=== PATIENT | male | born 1955 | race Caucasian/White ===

== ENCOUNTER 2017-08-11 12:42 | Emergency (ER) | payer OTHER ==
--- NOTE | 2017-08-11 12:51 | CPEKG ---
Heart Rate: 62 RR Interval: 968 P-R Interval: 200 QRSD Interval: 104 QT Interval: 432 QTC Interval: 439 P [place]: 24 QRS [place]: -10 T Wave [place]: 16 EKG Severity - NORMAL ECG - EKG Impression: SINUS RHYTHM Electronically Signed By: Heather Dyson 11-Aug-2017 15:14:11
[2017-08-11 12:53] VITALS: TEMP 97.7
--- NOTE | 2017-08-11 13:00 | EDPHY ---
H & P Time Seen by Provider: 08/11/17 12:48 HPI/ROS: CHIEF COMPLAINT: Dizziness HISTORY OF PRESENT ILLNESS: The patient is a 62-year-old male who presents emergency department with sudden onset of dizziness. The patient states that this morning he had some mild hearing loss in his left ear. He denies tenderness. While at lunch he developed sudden-onset dizziness. He felt as though room were spinning. He felt "off." Patient states that he became diaphoretic. He had nausea with 1 episode of vomiting. The patient denies any focal weakness or numbness. No visual change. No neck pain. No recent trauma or fall. He has no headache. REVIEW OF SYSTEMS: My complete review of systems is negative except as mentioned in the HPI. Past Medical/Surgical History: Denies Past surgical history: Noncontributory Smoking Status: Never smoked Physical Exam: Vitals noted GENERAL: Mild acute distress, alert. HEENT: Eyes normal to inspection, normal pharynx, no signs of dehydration. Horizontal nystagmus. His TMs are negative bilaterally. NECK: No thyromegaly, no lymphadenopathy, supple. The no bruit. RESPIRATORY: Clear to auscultation bilaterally, no rales, rhonchi or wheezing. CVS: Regular rate and rhythm, no rubs, murmurs, or gallops. ABDOMEN: Soft, nontender, nondistended, no organomegaly. BACK: Normal to inspection, no CVA tenderness. SKIN: Normal color, no rash, warm, dry. No pallor. EXTREMITIES: No pedal edema, no calf tenderness, no Homans sign or cords, no joint swelling. NEURO/PSYCH: Higher functions: Alert and Oriented x3. Normal speech and cognition. Normal mood and affect. Cranial nerves: Normal as tested. Cerebellar: Normal as tested. Good finger to nose, good [id number]. The patient has good rapid alternating movement without difficulty. Peripheral exam: Normal motor exam. Normal sensation. Normal reflexes. Constitutional: Initial Vital Signs Temperature (C) 36.5 C 08/11/17 12:48 Heart Rate 63 08/11/17 12:48 Respiratory Rate 16 08/11/17 12:48 Blood Pressure 148/72 H 08/11/17 12:48 O2 Sat (%) 93 08/11/17 12:48 O2 Delivery Mode Nasal Cannula O2 (L/minute) 2 Allergies/Adverse Reactions: No Known Allergies Allergy (Unverified 08/11/17 12:52) Home Medications: Medication Instructions Recorded Lisinopril 08/11/17 Meclizine HCl [Meclizine HCl 25 mg 25 mg PO TID #11 tab 08/11/17 (RX,OTC)] Ondansetron Odt [Zofran Odt 4 mg 4 mg PO Q4PRN PRN #7 tab 08/11/17 (*)] Medical Decision Making - Diagnostics Imaging Results: Imaging Impressions Head CT 08/11/17 13:02 Impression: 1. Normal CT brain without contrast. 2. Consider MRI of the brain without and with contrast enhancement, if there is continued clinical concern. Findings and recommendations discussed with Emergency Department physician, LISSETH BRADY at 13:30 hour, 08/11/2017. Final report concurs with initial preliminary interpretation. ED Course/Re-evaluation: In the emergency department I discussed possible etiologies with the patient. I answered all his questions. Patient was given meclizine 25 mg orally. He was given Ativan 1 mg IV. Patient was given normal saline 1 L IV for hydration. Head CT was ordered. An EKG was ordered. EKG shows normal sinus rhythm, normal rate, normal axis, normal intervals. There are no ST or T-wave abnormalities. EKG is normal as interpreted by me. 1329: head CT: No acute disease noted. Please refer the dictated report by Dr. Amin. On recheck the patient was still feeling significantly dizzy. Patient is white count was mildly elevated 10. Hematocrit was normal. Chemistry panel was notable for a low CO2 of 18. Anion gap was 17. His troponin was negative. 14 50: I rechecked the patient. He is feeling much better. He sits up and can ambulate without difficulty. He has no dizziness. His nystagmus is gone. No focal neurologic deficits. Differential Diagnosis: My differential includes but is not limited to peripheral vertigo, central vertigo, Meniere's disease, labyrinthitis, dissection, aneurysm, CVA, dehydration, electrolyte abnormality, sugar abnormality - Data Points Laboratory Results: Laboratory Results 08/11/17 12:45 08/11/17 12:45 08/11/17 08/11/17 08/11/17 12:52 12:45 12:45 WBC 10.09 10^3/uL H 10^3/uL (3.80-9.50) RBC 4.86 10^6/uL 10^6/uL (4.40-6.38) Hgb 15.8 g/dL g/dL (13.7-17.5) POC Hgb 16.7 gm/dL gm/dL (13.7-17.5) Hct 45.5 % % (40.0-51.0) POC Hct 49 % % (40-51) MCV 93.6 fL fL (81.5-99.8) MCH 32.5 pg pg (27.9-34.1) MCHC 34.7 g/dL g/dL (32.4-36.7) RDW 12.6 % % (11.5-15.2) Plt Count 302 10^3/uL 10^3/uL (150-400) MPV 9.8 fL fL (8.7-11.7) Neut % (Auto) 55.7 % % (39.3-74.2) Lymph % (Auto) 30.3 % % (15.0-45.0) [place] % (Auto) 7.4 % % (4.5-13.0) Eos % (Auto) 5.3 % % (0.6-7.6) Baso % (Auto) 0.8 % % (0.3-1.7) Nucleat RBC Rel Count 0.0 % % (0.0-0.2) Absolute Neuts (auto) 5.62 10^3/uL 10^3/uL (1.70-6.50) Absolute Lymphs (auto) 3.06 10^3/uL H 10^3/uL (1.00-3.00) Absolute Monos (auto) 0.75 10^3/uL 10^3/uL (0.30-0.80) Absolute Eos (auto) 0.53 10^3/uL H 10^3/uL (0.03-0.40) Absolute Basos (auto) 0.08 10^3/uL 10^3/uL (0.02-0.10) Absolute Nucleated RBC 0.00 10^3/uL 10^3/uL (0-0.01) Immature Gran % 0.5 % % (0.0-1.1) Immature Gran # 0.05 10^3/uL 10^3/uL (0.00-0.10) POC Sodium 140 mEq/L mEq/L (134-144) Sodium 139 mEq/L mEq/L (134-144) POC Potassium 3.6 mEq/L mEq/L (3.3-5.0) Potassium 4.0 mEq/L mEq/L (3.5-5.2) POC Chloride 107 mEq/L mEq/L (97-110) Chloride 104 mEq/L mEq/L (97-110) Carbon Dioxide 18 mEq/l L mEq/l (22-31) Anion Gap 17 mEq/L H mEq/L (8-16) POC BUN 17 mg/dL mg/dL (7-23) BUN 15 mg/dL mg/dL (7-23) Creatinine 0.9 mg/dL mg/dL (0.7-1.3) POC Creatinine 0.9 mg/dL mg/dL (0.7-1.3) Estimated GFR > 60 Glucose 133 mg/dL H mg/dL (70-100) POC Glucose 141 mg/dL H mg/dL (70-100) Calcium 9.6 mg/dL mg/dL (8.5-10.4) Troponin I < 0.012 ng/mL ng/mL (0.000-0.034) Medications Given: Discontinued Medications Sodium Chloride (Ns) 1,000 mls @ 0 mls/hr IV ONCE ONE PRN Reason: Wide Open Stop: 08/11/17 14:04 Last Admin: 08/11/17 14:00 Dose: 1,000 mls Lorazepam (Ativan Injection) 1 mg IVP EDNOW ONE Stop: 08/11/17 13:03 Last Admin: 08/11/17 13:29 Dose: 1 mg Meclizine HCl (Meclizine Hcl) 25 mg PO EDNOW ONE Stop: 08/11/17 13:06 Last Admin: 08/11/17 13:29 Dose: 25 mg Point of Care Test Results: 08/11/17 12:52 POC Sodium 140 POC Potassium 3.6 POC Chloride 107 POC BUN 17 POC Creatinine 0.9 POC Glucose 141 H Departure - Departure Disposition: Home, Routine, Self-Care Clinical Impression: Dizziness Condition: Good Instructions: Dizziness (ED) Additional Instructions: Your CT scan was normal. You need further follow-up with both ENT and Neurology. You been given contact information for both. Return with worsening symptoms or any other concerns. Referrals: Williams Astorga MD [Medical Doctor] - 3-4 days, if not improved Herman Quezada MD [Medical Doctor] - 3-4 days, if not improved Prescriptions: Meclizine HCl [Meclizine HCl 25 mg (RX,OTC)] 25 mg PO TID #11 tab Ondansetron Odt [Zofran Odt 4 mg (*)] 4 mg PO Q4PRN PRN #7 tab PRN Reason: For Nausea & Vomiting
[2017-08-11] MEDS ORDERED: LORazepam 2 MG/ML INJ IVP ONE (13:02)
[2017-08-11] MEDS ORDERED: MECLIZINE HCL 25 MG TAB PO ONE (13:05)
[2017-08-11 13:10] LABS: % IMMATURE GRANULYOCYTES 0.5 % (0.0-1.1); ABSOLUTE IMMATURE GRANULOCYTES 0.05 10^3/uL (0.00-0.10); ADD DIFF? NO; ADD MORPH? NO; ADD SCAN? NO; ATYPICAL LYMPHOCYTE FLAG 0 (0-99); FRAGMENT RBC FLAG 10 (0-99); HEMATOCRIT 45.5 % (40.0-51.0); HEMOGLOBIN 15.8 g/dL (13.7-17.5); LEFT SHIFT FLG 0 (0-99); LIPEMIA HEMOLYSIS FLAG 90 (0-99); MEAN CELL HEMOGLOBIN 32.5 pg (27.9-34.1); MEAN CELL HEMOGLOBIN CONCENTR. 34.7 g/dL (32.4-36.7); MEAN CELL VOLUME 93.6 fL (81.5-99.8); MEAN PLATELET VOLUME 9.8 fL (8.7-11.7); PLATELET CLUMPS FLAG 10 (0-99); PLATELET COUNT 302 10^3/uL (150-400); RED BLOOD CELL COUNT 4.86 10^6/uL (4.40-6.38); RED CELL DISTRIBUTION WIDTH 12.6 % (11.5-15.2)
[2017-08-11 13:23] LABS: ANION GAP 17 mEq/L (8-16); CALCIUM 9.6 mg/dL (8.5-10.4); CARBON DIOXIDE 18 mEq/l (22-31); CHLORIDE 104 mEq/L (97-110); CREATININE 0.9 mg/dL (0.7-1.3); GLOMERULAR FILTRATION RATE > 60; GLUCOSE 133 mg/dL (70-100); SODIUM 139 mEq/L (134-144)
[2017-08-11 13:34] LABS: TROPONIN I < 0.012 ng/mL (0.000-0.034)
[2017-08-11] MEDS ORDERED: NS 1,000 ML IV ONE (14:03)
[2017-08-11 15:33] VITALS: BP 116/64; PULSE 87; RESP 20; O2SAT 93
== END 2017-08-11 15:43 | disposition home or self-care (01) ==
LOC: EDUNIT#
DX: R42 Dizziness and giddiness (principal)
CPT/HCPCS: 82947-QW; 96374; J2060